=== PATIENT | female | born 1980 ===

== ENCOUNTER 2021-06-20 14:56 | Emergency (ER) | payer OTHER ==
[~2021-06-20] VITALS: Ht 160 cm; Wt 54.0 kg
[2021-06-20 15:39] VITALS: BP 103/58
== END 2021-06-20 21:54 | disposition left against medical advice (07) ==
LOC: ER 14:56
DX: M54.50 Low back pain, unspecified (principal); Z53.21 Procedure and treatment not carried out due to patient leaving prior to being seen by health care provider